=== PATIENT | female | born 1955 | race Caucasian/White ===

== ENCOUNTER 2024-07-13 09:56 | Inpatient (IN) | payer MEDICARE ==
[~2024-07-13] VITALS: Ht 170.2 cm; Wt 69.5 kg
[2024-07-13] MEDS ORDERED: ZOLPIDEM TARTRATE 10 MG TABLET PO PRN (10:30)
[2024-07-13 10:39] LABS: BASOPHILS % (AUTO) 0.4 % (0.0-2.0); EOSINOPHILS % (AUTO) 0.5 % (1.0-6.0); HEMATOCRIT 38.5 % (36-46); HEMOGLOBIN 13.3 g/dL (12.0-16.0); LYMPHOCYTES # (AUTO) 1.7 K/uL (1.0-4.8); LYMPHOCYTES % (AUTO) 20.8 % (22.0-44.0); MEAN CORPUSCULAR HEMOGLOBIN 35.3 pg (26.0-34.0); MEAN CORPUSCULAR HGB CONC 34.7 G/dL (31.0-37.0); MEAN CORPUSCULAR VOLUME 102 fL (80-100); MONOCYTES # (AUTO) 0.6 K/uL (0.1-1.0); MONOCYTES % (AUTO) 6.9 % (2.0-9.0); NEUTROPHILS # (AUTO) 5.8 K/uL (1.8-7.7); NEUTROPHILS % (AUTO) 71.4 % (40.0-70.0); PLATELET COUNT (AUTO) 535 K/uL (150-450); RED BLOOD CELL COUNT(AUTO) 3.78 MIL/uL (4.00-5.20); RED CELL DISTRIBUTION WIDTH 14.2 % (11.5-14.5); WHITE BLOOD COUNT (AUTO) 8.2 K/uL (4.5-11.0)
[2024-07-13 10:49] LABS: ANION GAP 12 mmol/L (8-16); CALCIUM, TOTAL 9.3 mg/dL (8.8-10.5); CARBON DIOXIDE 22 mmol/L (22-29); CHLORIDE 95 mmol/L (98-107); CREATININE 0.63 mg/dL (0.60-1.30); GLOMERULAR FILTR. RATE CALC > 60 mL/min (>60); GLUCOSE,RANDOM 292 mg/dL (70-110); POTASSIUM 4.3 mmol/L (3.5-5.1); SODIUM SERUM 129 mmol/L (136-145); UREA NITROGEN, BLOOD 13 mg/dL (7-18)
[2024-07-13 10:53] LABS: ALBUMIN 3.6 g/dL (3.4-5.0); BILIRUBIN,DIRECT 0.1 mg/dL (0.00-0.20); BILIRUBIN,TOTAL 0.4 mg/dL (0.1-1.0)
[2024-07-13 11:03] LABS: RBC MORPHOLOGY COMMENT ABNORMAL RBC MORPH
[2024-07-13 11:11] LABS: COVID AG,FIA SOURCE NPH
[2024-07-13 11:29] LABS: SARS-COV2 (COVID) ANTIGEN,FIA Negative (Negative)
[2024-07-13] MEDS: KETOROLAC TROMETHAMINE 30 MG/ML VIAL IM ONE (12:14)
[2024-07-13] MEDS ORDERED: SODIUM CHLORIDE 0.9% 1,000 ML IV ONE (13:15)
[2024-07-13 13:36] LABS: APPEARANCE,URINE CLEAR (CLEAR); BILIRUBIN,URINE NEGATIVE (NEGATIVE); COLOR,URINE LIGHT YELLOW (YELLOW); GLUCOSE, URINE (UA) >=1000 mg/dL (NEGATIVE); LEUKOCYTE ESTERASE ,URINE SMALL (NEGATIVE); NITRATE,URINE NEGATIVE (NEGATIVE); OCCULT BLOOD,URINE NEGATIVE (NEGATIVE); PH,URINE 5.5 (5.0-8.0); PH,URINE DRUG SCREEN 5.5 (5.0-8.0); PROTEIN,URINE NEGATIVE (NEGATIVE); SPECIFIC GRAVITIY, URINE 1.029 (1.003-1.030); UROBILINOGEN,URINE <=1.0 mg/dL (<=1.0)
[2024-07-13 13:42] LABS: ALCOHOL, URINE DRUG SCREEN NEGATIVE (NEGATIVE); AMPHET/METH SCREEN,URINE NEGATIVE (NEGATIVE); BARBITURATE SCREEN, URINE NEGATIVE (NEGATIVE); BENZODIAZEPINES SCREEN,URINE POSITIVE (NEGATIVE); CANNABINOID SCREEN,URINE NEGATIVE (NEGATIVE); COCAINE SCREEN,URINE NEGATIVE (NEGATIVE); METHADONE SCREEN, URINE NEGATIVE (NEGATIVE); OPIATE SCREEN,URINE POSITIVE (NEGATIVE); PHENCYCLIDINE SCREEN,URINE NEGATIVE (NEGATIVE)
[2024-07-13 13:46] LABS: BACTERIA,URINE Many /HPF (None Seen); RBC,URINE None Seen /HPF (0-2); SQUAMOUS EPITHELIAL CELL,UR Few /LPF (None Seen)
[2024-07-13] MEDS: INSULIN REGULAR, HUMAN 100 UNITS/ML SQ ONE (14:37)
[2024-07-13 14:46] LABS: GLUCOMETER DEV NAME(LOC) ERT.7; GLUCOSE,POINT OF CARE 386 MG/DL (70-110)
[2024-07-13 15:00] VITALS: O2SAT 98
[2024-07-13] MEDS: lisinopriL 10 MG TABLET PO ONE (15:01)
[2024-07-13] MEDS ORDERED: ALBUTEROL SULFATE HFA 90 MCG/PUFF 8 GM INHALER IH PRN (17:00)
[2024-07-13] MEDS ORDERED: DOCUSATE SODIUM 100 MG CAPSULE PO PRN (17:00)
[2024-07-13] MEDS: LORazepam 1 MG TABLET PO PRN (17:00)
[2024-07-13] MEDS ORDERED: PETROLATUM,WHITE 28 GM JELLY TP PRN (17:00)
[2024-07-13] MEDS ORDERED: GuaiFENesin/D-METHORPHAN [SUGAR-FREE] 200-20MG/10 ML SYRUP UDCUP PO PRN (17:00)
[2024-07-13] MEDS ORDERED: MAGNESIUM HYDROXIDE SUSPENSION 30 ML UDCUP PO PRN (17:00)
[2024-07-13] MEDS ORDERED: ONDANSETRON 4 MG TABLET PO PRN (17:00)
[2024-07-13] MEDS: IBUPROFEN 400 MG TABLET PO PRN (17:23)
[2024-07-13 17:38] VITALS: BP 175/88; PULSE 86; RESP 18; TEMP 96.7; O2SAT 96
[2024-07-13] MEDS ORDERED: GLUCAGON,HUMAN RECOMBINANT 1 MG VIAL IM PRN (19:30)
[2024-07-13 20:24] VITALS: BP 162/90; PULSE 88; RESP 18; TEMP 97.5; O2SAT 97
[2024-07-13 20:56] LABS: GLUCOMETER DEV NAME(LOC) BV3N.2; GLUCOSE,POINT OF CARE 301 MG/DL (70-110)
[2024-07-13] MEDS: INSULIN LISPRO 100 UNITS/ML SQ PRN (21:02)
[2024-07-13] MEDS: ZOLPIDEM TARTRATE 5 MG TABLET PO PRN (21:09)
[2024-07-13] MEDS: TraMADol HCL 50 MG TABLET PO PRN (21:09)
[2024-07-13 23:31] VITALS: RESP 20
[2024-07-13] MEDS: haloperidoL 5 MG TABLET PO PRN (23:38)
[2024-07-13] MEDS: ACETAMINOPHEN 325 MG TABLET PO PRN (23:39)
[2024-07-14 00:39] VITALS: RESP 18
[2024-07-14 06:00] LABS: GLUCOMETER DEV NAME(LOC) BV3N.2; GLUCOSE,POINT OF CARE 349 MG/DL (70-110)
[2024-07-14 08:14] VITALS: BP 130/82; PULSE 87; RESP 16; TEMP 96.9; O2SAT 97
[2024-07-14 09:47] LABS: BASOPHILS % (AUTO) 0.5 % (0.0-2.0); EOSINOPHILS % (AUTO) 0.4 % (1.0-6.0); HEMATOCRIT 36.6 % (36-46); HEMOGLOBIN 12.4 g/dL (12.0-16.0); LYMPHOCYTES # (AUTO) 1.7 K/uL (1.0-4.8); LYMPHOCYTES % (AUTO) 17.4 % (22.0-44.0); MEAN CORPUSCULAR HEMOGLOBIN 35.6 pg (26.0-34.0); MEAN CORPUSCULAR VOLUME 105 fL (80-100); MONOCYTES # (AUTO) 0.5 K/uL (0.1-1.0); MONOCYTES % (AUTO) 5.6 % (2.0-9.0); NEUTROPHILS # (AUTO) 7.5 K/uL (1.8-7.7); NEUTROPHILS % (AUTO) 76.1 % (40.0-70.0); PLATELET COUNT (AUTO) 441 K/uL (150-450); RED BLOOD CELL COUNT(AUTO) 3.49 MIL/uL (4.00-5.20); RED CELL DISTRIBUTION WIDTH 14.1 % (11.5-14.5); WHITE BLOOD COUNT (AUTO) 9.9 K/uL (4.5-11.0)
[2024-07-14 10:23] LABS: ALANINE AMINOTRANSFERASE 11 U/L (12-78); ALBUMIN 3.3 g/dL (3.4-5.0); ALKALINE PHOSPHATASE 86 U/L (46-116); ANION GAP 14 mmol/L (8-16); ASPARTATE AMINOTRANSFERASE 18 U/L (15-37); BILIRUBIN,TOTAL 0.4 mg/dL (0.1-1.0); CALCIUM, TOTAL 8.6 mg/dL (8.8-10.5); CARBON DIOXIDE 20 mmol/L (22-29); CHLORIDE 95 mmol/L (98-107); CREATININE 0.59 mg/dL (0.60-1.30); GLOMERULAR FILTR. RATE CALC > 60 mL/min (>60); GLUCOSE,RANDOM 295 mg/dL (70-110); POTASSIUM 3.9 mmol/L (3.5-5.1); SODIUM SERUM 129 mmol/L (136-145); TOTAL PROTEIN, SERUM 6.5 g/dL (6.4-8.2); UREA NITROGEN, BLOOD 9 mg/dL (7-18)
[2024-07-14 11:07] LABS: CHOL/HDL RATIO 2.9 (3.9-5.7); CHOLESTEROL 191 mg/dL (131-200); HDL CHOLESTEROL 67 mg/dL (40-60); LDL CHOL (CALC.) 98 mg/dL (0-130); TRIGLYCERIDES 128 mg/dL (15-150)
[2024-07-14] MEDS: NICOTINE 14 MG/24 HOUR PATCH TD PRN (11:43)
[2024-07-14 12:05] LABS: GLUCOMETER DEV NAME(LOC) BV3N.2; GLUCOSE,POINT OF CARE 361 MG/DL (70-110)
[2024-07-14 17:11] LABS: GLUCOMETER DEV NAME(LOC) BV3N.2; GLUCOSE,POINT OF CARE 333 MG/DL (70-110)
[2024-07-14 20:08] VITALS: BP 120/90; PULSE 97; RESP 15; TEMP 96.9; O2SAT 98
[2024-07-14 20:30] LABS: GLUCOMETER DEV NAME(LOC) BV3N.2; GLUCOSE,POINT OF CARE 297 MG/DL (70-110)
[2024-07-14] MEDS: MIRTAZAPINE 15 MG TABLET PO SCH (20:54)
[2024-07-14] MEDS: MAG HYDROX/ALUMINUM HYD/SIMETH ES 30 ML SUSPENSION UDCUP PO PRN (21:16)
[2024-07-14 23:56] LABS: GLUCOMETER DEV NAME(LOC) BV3N.2; GLUCOSE,POINT OF CARE 243 MG/DL (70-110)
[2024-07-15] VITALS (8 sets, daily range): BP systolic 112–176; BP diastolic 68–103; PULSE 86–89; RESP 16–18; TEMP 96.7–97.8; O2SAT 96–98
[2024-07-15] MEDS: CloNIDine HCL 0.1 MG TABLET PO PRN (06:16)
[2024-07-15 06:36] LABS: GLUCOMETER DEV NAME(LOC) BV3N.2; GLUCOSE,POINT OF CARE 355 MG/DL (70-110)
[2024-07-15] MEDS: CEPHALEXIN MONOHYDRATE 500 MG CAPSULE PO SCH (08:43)
[2024-07-15] MEDS: AmLODIPine BESYLATE 2.5 MG TABLET PO SCH (08:44)
[2024-07-15 11:30] LABS: GLUCOMETER DEV NAME(LOC) BV3N.2; GLUCOSE,POINT OF CARE 300 MG/DL (70-110)
[2024-07-15 17:01] LABS: GLUCOMETER DEV NAME(LOC) BV3N.2; GLUCOSE,POINT OF CARE 374 MG/DL (70-110)
[2024-07-15 20:40] LABS: GLUCOMETER DEV NAME(LOC) BV3N.2; GLUCOSE,POINT OF CARE 364 MG/DL (70-110)
[2024-07-16] VITALS (7 sets, daily range): BP systolic 143–156; BP diastolic 84–94; PULSE 82–91; RESP 17–18; TEMP 96.9–97.4; O2SAT 97
[2024-07-16 06:36] LABS: GLUCOMETER DEV NAME(LOC) BV3N.2; GLUCOSE,POINT OF CARE 306 MG/DL (70-110)
[2024-07-16 11:46] LABS: GLUCOMETER DEV NAME(LOC) BV3N.2; GLUCOSE,POINT OF CARE 384 MG/DL (70-110)
[2024-07-16 16:45] LABS: GLUCOMETER DEV NAME(LOC) BV3N.2; GLUCOSE,POINT OF CARE 360 MG/DL (70-110)
[2024-07-16] MEDS: MetFORMIN HCL 500 MG TABLET PO SCH (17:00)
[2024-07-16 20:31] LABS: GLUCOMETER DEV NAME(LOC) BV3N.2; GLUCOSE,POINT OF CARE 285 MG/DL (70-110)
[2024-07-17 05:54] VITALS: BP 163/93; PULSE 83; RESP 18; TEMP 97.8; O2SAT 98
[2024-07-17 06:26] LABS: GLUCOMETER DEV NAME(LOC) BV3N.2; GLUCOSE,POINT OF CARE 293 MG/DL (70-110)
[2024-07-17 08:47] VITALS: BP 131/68; PULSE 82; RESP 16; TEMP 97.9; O2SAT 97
[2024-07-17 12:40] LABS: GLUCOMETER DEV NAME(LOC) BV3N.2; GLUCOSE,POINT OF CARE 378 MG/DL (70-110)
[2024-07-17 13:01] VITALS: RESP 16
[2024-07-17 14:01] VITALS: RESP 16
[2024-07-17 18:46] LABS: GLUCOMETER DEV NAME(LOC) BV3N.2; GLUCOSE,POINT OF CARE 330 MG/DL (70-110)
[2024-07-17 20:07] VITALS: BP 172/90; PULSE 90; RESP 18; TEMP 97.6; O2SAT 97
[2024-07-18 06:36] LABS: GLUCOMETER DEV NAME(LOC) BV3N.2; GLUCOSE,POINT OF CARE 377 MG/DL (70-110)
[2024-07-18 08:17] VITALS: RESP 17
[2024-07-18 09:14] VITALS: BP 143/81; PULSE 87; RESP 17; TEMP 97.6; O2SAT 97
[2024-07-18 09:17] VITALS: RESP 16
[2024-07-18] MEDS: INSULIN LISPRO 100 UNITS/ML SQ ONE ×2 (11:45→16:47)
[2024-07-18 13:45] LABS: GLUCOMETER DEV NAME(LOC) BV3N.2; GLUCOSE,POINT OF CARE 478 MG/DL (70-110)
[2024-07-18 16:48] VITALS: RESP 17
[2024-07-18 17:05] LABS: GLUCOMETER DEV NAME(LOC) BV3N.2; GLUCOSE,POINT OF CARE 413 MG/DL (70-110)
[2024-07-18 17:48] VITALS: RESP 16
[2024-07-18 20:18] VITALS: BP 140/82; PULSE 82; RESP 17; TEMP 98.1; O2SAT 96
[2024-07-18 20:31] LABS: GLUCOMETER DEV NAME(LOC) BV3N.2; GLUCOSE,POINT OF CARE 317 MG/DL (70-110)
[2024-07-19 04:00] VITALS: BP 155/95; RESP 16; O2SAT 96
[2024-07-19] MEDS: GlipiZIDE 5 MG TABLET PO SCH (06:10)
[2024-07-19 06:25] LABS: GLUCOMETER DEV NAME(LOC) BV3N.2; GLUCOSE,POINT OF CARE 390 MG/DL (70-110)
[2024-07-19 08:36] VITALS: BP 142/78; PULSE 80; RESP 17; TEMP 97.4; O2SAT 98
[2024-07-19] MEDS ORDERED: GLUCAGON,HUMAN RECOMBINANT 1 MG VIAL IM PRN (09:45)
[2024-07-19] MEDS: LOPERAMIDE HCL 2 MG CAPSULE PO PRN (09:50)
[2024-07-19] MEDS: INSULIN LISPRO 100 UNITS/ML SQ ONE (11:18)
[2024-07-19 11:40] LABS: GLUCOMETER DEV NAME(LOC) BV3N.2; GLUCOSE,POINT OF CARE 494 MG/DL (70-110)
[2024-07-19 14:59] VITALS: RESP 19; O2SAT 97
[2024-07-19 17:00] LABS: GLUCOMETER DEV NAME(LOC) BV3N.2; GLUCOSE,POINT OF CARE 353 MG/DL (70-110)
[2024-07-19 20:06] VITALS: BP 138/90; PULSE 86; RESP 17; TEMP 98.1; O2SAT 98
[2024-07-20] VITALS (7 sets, daily range): BP systolic 117–166; BP diastolic 63–95; PULSE 74–90; RESP 12–18; TEMP 97–98.8; O2SAT 95–98
[2024-07-20 02:12] LABS: GLUCOMETER DEV NAME(LOC) BV3N.2; GLUCOSE,POINT OF CARE 383 MG/DL (70-110)
[2024-07-20] MEDS: INSULIN LISPRO 100 UNITS/ML SQ ONE ×2 (02:27→16:26)
[2024-07-20] MEDS: INSULIN LISPRO 100 UNITS/ML SQ PRN (06:33)
[2024-07-20 06:41] LABS: GLUCOMETER DEV NAME(LOC) BV3N.2; GLUCOSE,POINT OF CARE 278 MG/DL (70-110)
[2024-07-20 16:25] LABS: GLUCOMETER DEV NAME(LOC) BV3N.2; GLUCOSE,POINT OF CARE 411 MG/DL (70-110)
[2024-07-20 18:00] LABS: GLUCOMETER DEV NAME(LOC) BV3N.2; GLUCOSE,POINT OF CARE 338 MG/DL (70-110)
[2024-07-20 20:10] LABS: GLUCOMETER DEV NAME(LOC) BV3N.2; GLUCOSE,POINT OF CARE 322 MG/DL (70-110)
[2024-07-21 06:15] LABS: GLUCOMETER DEV NAME(LOC) BV3N.2; GLUCOSE,POINT OF CARE 347 MG/DL (70-110)
[2024-07-21 08:37] VITALS: BP 156/82; PULSE 85; RESP 17; TEMP 97.5; O2SAT 98
[2024-07-21 12:46] VITALS: RESP 16
[2024-07-21 13:46] VITALS: RESP 16
[2024-07-21 14:11] LABS: GLUCOMETER DEV NAME(LOC) BV3N.2; GLUCOSE,POINT OF CARE 370 MG/DL (70-110)
[2024-07-21 16:26] LABS: GLUCOMETER DEV NAME(LOC) BV3N.2; GLUCOSE,POINT OF CARE 280 MG/DL (70-110)
[2024-07-21 20:23] VITALS: BP 152/93; PULSE 85; RESP 16; TEMP 97.7; O2SAT 100
[2024-07-21 20:51] LABS: GLUCOMETER DEV NAME(LOC) BV3N.2; GLUCOSE,POINT OF CARE 342 MG/DL (70-110)
[2024-07-22 06:26] LABS: GLUCOMETER DEV NAME(LOC) BV3N.2; GLUCOSE,POINT OF CARE 328 MG/DL (70-110)
[2024-07-22 06:29] VITALS: RESP 16
[2024-07-22 08:17] VITALS: BP 166/90; PULSE 82; RESP 17; TEMP 96.7; O2SAT 100
[2024-07-22] MEDS: SitaGLIPtin PHOSPHATE 50 MG TABLET PO SCH (09:00)
[2024-07-22 11:51] LABS: GLUCOMETER DEV NAME(LOC) BV3N.2; GLUCOSE,POINT OF CARE 390 MG/DL (70-110)
[2024-07-22 12:50] VITALS: RESP 18; O2SAT 99
[2024-07-22 13:50] VITALS: RESP 17
[2024-07-22 17:01] LABS: GLUCOMETER DEV NAME(LOC) BV3N.2; GLUCOSE,POINT OF CARE 288 MG/DL (70-110)
[2024-07-22 20:37] VITALS: BP 179/82; PULSE 86; RESP 18; TEMP 97.8; O2SAT 86
[2024-07-22 20:46] LABS: GLUCOMETER DEV NAME(LOC) BV3N.2; GLUCOSE,POINT OF CARE 295 MG/DL (70-110)
[2024-07-23] VITALS (9 sets, daily range): BP systolic 132–157; BP diastolic 86–90; PULSE 81–88; RESP 16–18; TEMP 97.3–97.8; O2SAT 88–98
[2024-07-23 11:35] LABS: GLUCOMETER DEV NAME(LOC) BV3N.2; GLUCOSE,POINT OF CARE 332 MG/DL (70-110)
[2024-07-23 16:45] LABS: GLUCOMETER DEV NAME(LOC) BV3N.2; GLUCOSE,POINT OF CARE 252 MG/DL (70-110)
[2024-07-23] MEDS ORDERED: NICOTINE POLACRILEX 2 MG LOZENGE PO PRN (16:45)
[2024-07-23 20:41] LABS: GLUCOMETER DEV NAME(LOC) BV3N.2; GLUCOSE,POINT OF CARE 316 MG/DL (70-110)
[2024-07-24] MEDS ORDERED: GLIP5TAB15 PO (04:51)
[2024-07-24] MEDS ORDERED: AMLO2.5T96 PO (04:51)
[2024-07-24] MEDS ORDERED: SITA50 PO (04:51)
[2024-07-24] MEDS ORDERED: MIRT-89 PO (04:51)
[2024-07-24 06:36] LABS: GLUCOMETER DEV NAME(LOC) BV3N.2; GLUCOSE,POINT OF CARE 297 MG/DL (70-110)
[2024-07-24 08:14] VITALS: BP 128/80; PULSE 76; RESP 17; TEMP 98; O2SAT 100
[2024-07-24 08:54] VITALS: RESP 17
[2024-07-24 09:54] VITALS: RESP 17
[2024-07-24 12:01] LABS: GLUCOMETER DEV NAME(LOC) BV3N.2; GLUCOSE,POINT OF CARE 369 MG/DL (70-110)
== END 2024-07-24 11:58 | disposition home or self-care (01) | DRG 885 ==
LOC: EMS 10:00 → B3A 15:23
PROVIDERS: ADMIT Psychiatry & Neurology Child & Adolescent Psychiatry; ATTEND Psychiatry & Neurology Child & Adolescent Psychiatry
PROC: GZHZZZZ Group Psychotherapy (ICD-10-PCS; principal; 2024-07-14)
PROC: GZ52ZZZ Individual Psychotherapy, Cognitive (ICD-10-PCS; 2024-07-14)
PROC: GZ56ZZZ Individual Psychotherapy, Supportive (ICD-10-PCS; 2024-07-14)
DX: F33.2 Major depressive disorder, recurrent severe without psychotic features (principal); E11.65 Type 2 diabetes mellitus with hyperglycemia; R45.851 Suicidal ideations; E87.1 Hypo-osmolality and hyponatremia; F10.10 Alcohol abuse, uncomplicated; F22 Delusional disorders; I10 Essential (primary) hypertension; Z20.822 Contact with and (suspected) exposure to COVID-19; F17.210 Nicotine dependence, cigarettes, uncomplicated; F41.9 Anxiety disorder, unspecified; G89.4 Chronic pain syndrome; Y90.2 Blood alcohol level of 40-59 mg/100 ml; Z88.2 Allergy status to sulfonamides; Z79.899 Other long term (current) drug therapy; Z90.710 Acquired absence of both cervix and uterus
CPT/HCPCS: 80048; 80053; 80061; 80076; 80307; 81001; 82962; 83036; 84443; 85025; 87077; 87086; 87186; 96372; 99285; G0480; J1815; J1885